=== PATIENT | female | born 1960 | race Caucasian/White ===

== ENCOUNTER 2017-03-01 12:52 | Inpatient (IN) | payer OTHER ==
[~2017-03-01] VITALS: Ht 165.1 cm; Wt 78.5 kg
[~2017-03-01 12:52] MED LIST: ADVAIR HFA 230/12 GM; LOTREL 5-20 MG1 CAP; NEURONTIN300 MG; SYNTHROID112 MCG; VITAMIN D31000 UNIT
[2017-03-01] MEDS ORDERED: SINGULAIR10 MG (13:06)
[2017-03-01] MEDS ORDERED: LOTREL 5-20 MG1 CAP (13:06)
[2017-03-07] MEDS ORDERED: LORATADINE10 MG PO (17:27)
[2017-03-07] MEDS ORDERED: LEVOTHYROXINE112 MCG PO (17:27)
[2017-03-07] MEDS ORDERED: FOLIC ACID1 MG PO (17:27)
[2017-03-07] MEDS ORDERED: SYMBICORT 16010.2 GM IH (17:27)
[2017-03-07] MEDS ORDERED: PROAIR HFA8.5 GM IH (17:27)
[2017-03-07] MEDS ORDERED: Neurin-Sl Tablet Sl SL (17:27)
[2017-03-07] MEDS ORDERED: MONTELUKAST SOD10 MG PO (17:27)
[2017-03-07] MEDS ORDERED: LOTREL 5/20 MG PO (17:27)
== END 2017-03-07 18:20 | disposition home or self-care (01) | DRG 194 ==
LOC: ER 12:52 → MEDJ 03-02 11:40 → SEC-K 03-02 11:40 → MEDJ 03-03 10:54
PROC: 3E0F7GC Introduction of Other Therapeutic Substance into Respiratory Tract, Via Natural or Artificial Opening (ICD-10-PCS; principal; 2017-03-02)
PROC: 8E0ZXY6 Isolation (ICD-10-PCS; 2017-03-02)
DX: J09.X2 Influenza due to identified novel influenza A virus with other respiratory manifestations (principal); J45.51 Severe persistent asthma with (acute) exacerbation; R09.02 Hypoxemia; I10 Essential (primary) hypertension; E03.8 Other specified hypothyroidism; E09.9 Drug or chemical induced diabetes mellitus without complications; T38.0X5A Adverse effect of glucocorticoids and synthetic analogues, initial encounter; G62.89 Other specified polyneuropathies

== ENCOUNTER 2017-05-18 10:23 | Emergency (ER) | payer OTHER ==
[~2017-05-18] VITALS: Ht 165.1 cm; Wt 78.5 kg
[~2017-05-18 10:23] MED LIST changes: +FOLIC ACID1 MG PO; +LEVOTHYROXINE112 MCG PO; +LORATADINE10 MG PO; +LOTREL 5/20 MG PO; +MONTELUKAST SOD10 MG PO; +Neurin-Sl Tablet Sl SL; +PROAIR HFA8.5 GM IH; +SINGULAIR10 MG; +SYMBICORT 16010.2 GM IH
== END 2017-05-18 14:22 | disposition home or self-care (01) ==
LOC: ER 10:23
DX: J40 Bronchitis, not specified as acute or chronic (principal); J11.1 Influenza due to unidentified influenza virus with other respiratory manifestations

== ENCOUNTER 2017-08-10 10:30 | Emergency (ER) | payer OTHER ==
[~2017-08-10] VITALS: Ht 165.1 cm; Wt 77.1 kg
== END 2017-08-10 11:45 | disposition home or self-care (01) ==
LOC: ER 10:30
DX: M54.89 Other dorsalgia (principal); M54.5 Low back pain; M54.2 Cervicalgia; M62.838 Other muscle spasm

== ENCOUNTER 2018-02-13 12:21 | Emergency (ER) | payer OTHER ==
[~2018-02-13] VITALS: Ht 165.1 cm; Wt 78.5 kg
[2018-02-13] MEDS ORDERED: FOLIC ACID10 GM (13:10)
== END 2018-02-13 19:37 | disposition home or self-care (01) ==
LOC: ER 12:21
DX: J45.998 Other asthma (principal)

== ENCOUNTER 2018-04-20 10:07 | Emergency (ER) | payer OTHER ==
[~2018-04-20] VITALS: Ht 165.1 cm; Wt 78.5 kg
[~2018-04-20 10:07] MED LIST changes: +FOLIC ACID10 GM
[2018-04-20] MEDS ORDERED: METFORMIN HCL500 MG PO (10:35)
[2018-04-20] MEDS ORDERED: MAGNESIUM400 M1 PO (10:35)
[2018-04-20] MEDS ORDERED: CRESTOR5 MG PO (10:36)
== END 2018-04-20 13:07 | disposition home or self-care (01) ==
LOC: ER 10:07
DX: M54.2 Cervicalgia (principal); M54.5 Low back pain

== ENCOUNTER 2018-08-28 11:30 | Emergency (ER) | payer OTHER ==
[~2018-08-28] VITALS: Ht 165.1 cm; Wt 75.3 kg
[~2018-08-28 11:30] MED LIST changes: +CRESTOR5 MG PO; +MAGNESIUM400 M1 PO; +METFORMIN HCL500 MG PO
[2018-08-28] MEDS ORDERED: ZANAFLEX4 M1 (11:57)
== END 2018-08-28 14:17 | disposition home or self-care (01) ==
LOC: ER 11:30
DX: R42 Dizziness and giddiness (principal)

== ENCOUNTER 2018-11-28 09:33 | Emergency (ER) | payer OTHER ==
[~2018-11-28] VITALS: Ht 165.1 cm; Wt 73.5 kg
[~2018-11-28 09:33] MED LIST changes: +ZANAFLEX4 M1
[2018-11-28] MEDS ORDERED: OMEGA-31000 MG (10:19)
== END 2018-11-28 14:40 | disposition home or self-care (01) ==
LOC: ER 09:33
DX: M54.2 Cervicalgia (principal); M62.838 Other muscle spasm

== ENCOUNTER 2021-11-18 10:32 | Emergency (ER) | payer OTHER ==
[~2021-11-18] VITALS: Ht 165.1 cm; Wt 70.3 kg
[~2021-11-18 10:32] MED LIST changes: +OMEGA-31000 MG
[2021-11-18] MEDS ORDERED: VALSARTAN-HCTZ1 EAC3 PO (11:05)
== END 2021-11-18 13:10 | disposition home or self-care (01) ==
LOC: ER 10:32
DX: M62.830 Muscle spasm of back (principal); I10 Essential (primary) hypertension; Z88.0 Allergy status to penicillin